=== PATIENT | male | born 1935 | race Caucasian/White ===

== ENCOUNTER 2017-02-10 11:33 | Emergency (ER) | payer MEDICARE ==
[2017-02-10 11:46] VITALS: BP 119/66
--- NOTE | 2017-02-10 12:07 | UC ---
Respiratory Complaint HPI - HPI Summary HPI Summary: 2 DAYS OF COUGH AND RHINITIS. HAS MILD ST. FEELS RUN DOWN. CHEST IS RATTLY. NO FEVER, EAR PAIN, N/V/D. - History of Current Complaint Chief Complaint: UCRespiratory Stated Complaint: CONGESTION Time Seen by Provider: 02/10/17 11:55 Hx Obtained From: Patient Onset/Duration: Gradual Onset, Lasting Days, Still Present Timing: Constant Severity Initially: Moderate Severity Currently: Moderate Pain Intensity: 0 Pain Scale Used: 0-10 Numeric Character: Cough: Nonproductive Aggravating Factors: Nothing Alleviating Factors: Nothing Associated Signs And Symptoms: Positive: URI, Nasal Congestion. Negative: Dyspnea, Fever, Chills, Pleuritic Chest Pain, Wheezing - Allergies/Home Medications Allergies/Adverse Reactions: Allergies Allergy/AdvReac Type Severity Reaction Status Date / Time Tetanus Toxoid Allergy Unknown Unknown Verified 02/10/17 11:46 Reaction Details Home Medications: Home Medications Aspirin TAB* [Aspirin 325 MG TAB*] 325 mg PO Q6H PRN 02/10/17 [History Confirmed 02/10/17] PMH/Surg Hx/FS Hx/Imm Hx Endocrine History: Thyroid Disease Cardiovascular History: Hypertension Other Cancer History: MELANOMA - Surgical History Surgical History: Yes Surgery Procedure, Year, and Place: 2012 - thryroid partially removed, melanoma removed RIGHT forearm. 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 prostatectomy - Family History Known Family History: Positive: Cardiac Disease, Hypertension - Social History Alcohol Use: None Alcohol Amount: gave it up in August 2014 Substance Use Type: None Smoking Status (MU): Former Smoker When Did the Patient Quit Smoking/Using Tobacco: 2001 - Immunization History Most Recent Influenza Vaccination: none Review of Systems Constitutional: Negative ENT: Sore Throat, Nasal Discharge Respiratory: Cough Cardiovascular: Negative Gastrointestinal: Negative All Other Systems Reviewed And Are Negative: Yes Physical Exam Triage Information Reviewed: Yes Appearance: Well-Appearing, No Pain Distress, Well-Nourished Vital Signs: Initial Vital Signs Temp 99.6 F 02/10/17 11:41 Pulse 74 02/10/17 11:41 Resp 16 02/10/17 11:41 BP 119/66 02/10/17 11:41 Pulse Ox 97 02/10/17 11:41 Vital Signs Reviewed: Yes Eyes: Positive: Conjunctiva Clear ENT: Positive: Hearing grossly normal, Pharynx normal, TMs normal Neck: Positive: Supple, Nontender, No Lymphadenopathy Respiratory: Positive: No respiratory distress, No accessory muscle use, Rhonchi - CLEARS WITH COUGH. Negative: Wheezing Cardiovascular Exam: Normal Abdomen Description: Positive: Soft Musculoskeletal: Positive: No Edema Neurological: Positive: Alert Psychological: Positive: Normal Response To Family, Age Appropriate Behavior Skin: Negative: rashes UC Diagnostic Evaluation - Laboratory O2 Sat by Pulse Oximetry: 97 Respiratory Course/Dx - Differential Dx/Diagnosis Provider Diagnoses: ACUTE BRONCHITIS Discharge - Discharge Plan Condition: Stable Disposition: HOME Prescriptions: Azithromycin [Azithromycin 500 MG TAB] 500 mg PO DAILY #5 tab Patient Education Materials: Acute Bronchitis (ED) Referrals: Lakshmi Vaca [Primary Care Provider] - If Needed Additional Instructions: SEEK FOLLOW-UP IF NOT IMPROVING EXPECTED.
== END 2017-02-10 12:23 | disposition home or self-care (01) ==
LOC: UCEAST 11:33
DX: J20.9 Acute bronchitis, unspecified (principal); Z87.891 Personal history of nicotine dependence
CPT/HCPCS: 99212; G0463

== ENCOUNTER 2018-04-30 10:31 | Emergency (ER) | payer MEDICARE ==
[2018-04-30 10:38] VITALS: BP 138/64
--- NOTE | 2018-04-30 10:57 | UC ---
Throat Pain/Nasal Edwin HPI - HPI Summary HPI Summary: 83-year-old male comes in to clinic with a chief complaint of cough body aches and overall feeling ill. Has a runny nose. This all started 4-5 days ago. He' s had a cough but is not able to bring up any sputum. He feels like he got wet about a week ago out in the cold and had sweats made everything worse. - History of Current Complaint Chief Complaint: UCGeneralIllness Stated Complaint: FLU-LIKE SYMPTOMS Time Seen by Provider: 04/30/18 10:41 Pain Intensity: 5 - Allergies/Home Medications Allergies/Adverse Reactions: Allergies Allergy/AdvReac Type Severity Reaction Status Date / Time tetanus and diphtheria Allergy Rash Verified 04/30/18 10:39 toxoids PMH/Surg Hx/FS Hx/Imm Hx Endocrine History: Dyslipidemia Cardiovascular History: Hypertension - Surgical History Surgical History: Yes Surgery Procedure, Year, and Place: 2012 - thryroid partially removed, melanoma removed RIGHT forearm. 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 prostatectomy - Family History Known Family History: Positive: Cardiac Disease, Hypertension - Social History Alcohol Use: None Alcohol Amount: gave it up in August 2014 Substance Use Type: None Smoking Status (MU): Former Smoker When Did the Patient Quit Smoking/Using Tobacco: 2001 - Immunization History Most Recent Influenza Vaccination: none Review of Systems All Other Systems Reviewed And Are Negative: Yes Constitutional: Positive: Chills, Other - MYALGIAS Skin: Positive: Negative Eyes: Positive: Negative ENT: Positive: Sore Throat, Nasal Discharge, Sinus Congestion Respiratory: Positive: Cough Cardiovascular: Positive: Negative Gastrointestinal: Positive: Negative Motor: Positive: Negative Neurovascular: Positive: Negative Musculoskeletal: Positive: Negative Neurological: Positive: Negative Psychological: Positive: Negative Is Patient Immunocompromised?: No Physical Exam Triage Information Reviewed: Yes Appearance: No Pain Distress, Well-Nourished, Ill-Appearing - MILD Vital Signs: Initial Vital Signs Temp 98.9 F 04/30/18 10:36 Pulse 94 04/30/18 10:36 Resp 16 04/30/18 10:36 BP 138/64 04/30/18 10:36 Pulse Ox 99 04/30/18 10:36 Vital Signs Reviewed: Yes Eye Exam: Normal Eyes: Positive: Conjunctiva Clear ENT: Positive: Pharyngeal erythema, Nasal congestion, Nasal drainage, TMs normal Neck exam: Normal Neck: Positive: Supple Respiratory: Positive: Lungs clear, Normal breath sounds, No respiratory distress Cardiovascular: Positive: RRR Musculoskeletal Exam: Normal Musculoskeletal: Positive: Strength Intact, ROM Intact Neurological Exam: Normal Neurological: Positive: Alert, Muscle Tone Normal Psychological Exam: Normal Psychological: Positive: Normal Response To Family, Age Appropriate Behavior Skin Exam: Normal Throat Pain/Nasal Course/Dx - Course Course Of Treatment: DISCUSSED VIRAL VERSES BACTERIAL INFECTIONS AND THE ROLE OF ANTIBIOTICS. THE PATIENT PREFERS TO BE ON ANTIBIOTICS AT THIS TIME. INFLUENZA NEGATIVE. Plan is to follow-up with the [place] clinic get a reevaluation sooner if worse. - Differential Dx/Diagnosis Provider Diagnosis: Bronchitis Discharge - Sign-Out/Discharge Documenting (check all that apply): Patient Departure All imaging exams completed and their final reports reviewed: No Studies - Discharge Plan Condition: Stable Disposition: HOME Prescriptions: Azithromyxin RAHEL (NF) [Z-Rahel (Zithromax) 250 mg tabs #6] 2 tab PO .TODAY, THEN 1 DAILY #6 tab Patient Education Materials: Acute Bronchitis (ED) Referrals: Rafael Almeida MD [Primary Care Provider] - Additional Instructions: FOLLOW UP WITH YOUR DOCTOR IF NOT COMPLETELY IMPROVED. GET RECHECKED FOR ANY WORSENING OF YOUR CONDITION OR QUESTIONS OR CONCERNS. - Billing Disposition and Condition Condition: STABLE Disposition: Home
== END 2018-04-30 11:40 | disposition home or self-care (01) ==
LOC: UCEAST 10:31
DX: J40 Bronchitis, not specified as acute or chronic (principal); Z88.7 Allergy status to serum and vaccine; I10 Essential (primary) hypertension
CPT/HCPCS: 99212; G0463

== ENCOUNTER 2018-12-25 13:16 | Emergency (ER) | payer MEDICARE ==
--- OUTSIDE RECORDS SUMMARY | 2018-12-25 13:22 | XMS REPORT | Continuity of Care Document ---
:1935 External Reference #:[id number] Author Name Lula Lara M.D. Address [address] [place] [address] Care Team Providers Name Role Phone Rafael Almeida MD Care Team Information Physics Department Chair Unavailable Rafael Almeida MD Primary Care Physician Unavailable Payers Date Identification Numbers Payment Provider Subscriber Policy Number: [id number] Medicare Gianluca Streeter PayID: [id number] [address] [place] [address] Expires: 2018 Policy Number: [id number] Medicare Gialnuca Streeter PayID: [id number] [address] [place] [address] Problems Active Problems Provider Date Lula Rodney M.D. Onset: 11/27/2018 History of malignant neoplasm of prostate Lula Lara M.D. Onset: 2018 Family History Date Family Member(s) Observation Comments Father from old age in 80s. Mother Patient not sure cause of - 80s. Social History Type Date Description Comments Sex Unknown Marital Status Lives With Home Environment Lives With Diet Patient follows no dietary restrictions Occupation [employer] 40 years Occupation Retired Work Status Retired Tobacco Use Start: Unknown End: Quit Unknown Smoking Status Reviewed: 11/16/18 Quit ETOH Use Denies alcohol use Tobacco Use Start: Unknown End: Patient is a former Unknown smoker Recreational Drug Use Denies Drug Use Allergies, Adverse Reactions, Alerts Active Allergies Reaction Severity Comments Date Tetanus 07/18/2018 Medications Active Medications SIG Qnty Indications Ordering Date Provider Loratadine take 1 tablet a 30caps J30.89 Choe Norwood MD 08/29/2018 10mg day. Capsules Dorzolamide instill 1 drop in Unknown HCL/Timolol Maleate both eyes bid 22.3-6.8mg/ml Solution Fluocinonide apply to affected Unknown 0.05% area at bed time Ointment for psoriasis Potassium Chloride 1 by mouth every Unknown [facility] ER day 20Meq Tablets ER Prednisolone Acetate instill 1 drop in Unknown 1% R eye bid 5 mins Suspension between each drop Terbinafine HCL apply between toes Unknown 1% once daily on both Cream feet Atenolol 1 by mouth every Unknown 50mg Tablets day Lisinopril 1 by mouth every Unknown 10mg Tablets day Ventolin HFA take 2 puffs every 18gm Unknown 6 hours as needed 108(90Base) mcg/Act for shortness of Aerosol breath. History Medications Aspirin Adult Low Dose 1 by mouth 3 times a week Unknown - Unknown 81mg Tablets DR Vital Signs Date Vital Result Comment 11/27/2018 2:24pm BP Systolic 152 mmHg BP Diastolic 62 mmHg Body Temperature 98.6 F Heart Rate 75 /min Respiratory Rate 18 /min Height 65 inches 5'5" Weight 171.50 lb BMI (Body Mass Index) 28.5 kg/m2 BSA (Body Surface Area) 1.85 m2 [place] body weight in kilograms 62 kg O2 % BldC Oximetry 96 % Pain Level 0 08/29/2018 1:42pm BP Systolic Sitting Left Arm 125 mmHg BP Diastolic Sitting Left Arm 62 mmHg Heart Rate 68 /min Respiratory Rate 18 /min Height 65 inches 5'5" Weight 164.00 lb BMI (Body Mass Index) 27.3 kg/m2 BSA (Body Surface Area) 1.82 m2 [place] body weight in kilograms 62 kg O2 % BldC Oximetry 97 % 07/18/2018 3:46pm BP Systolic Sitting Left Arm 141 mmHg BP Diastolic Sitting Left Arm 62 mmHg Heart Rate 80 /min Respiratory Rate 16 /min Height 65 inches 5'5" Weight 168.00 lb BMI (Body Mass Index) 28.0 kg/m2 BSA (Body Surface Area) 1.84 m2 [place] body weight in kilograms 62 kg O2 % BldC Oximetry 97 % ra Results Test Date Facility Test Result H/L Range Note Laboratory test 11/27/2018 [facility] Prostate <pending> finding [address] [place] [address] Antigen [phone] Urine Dipstick 11/27/2018 [facility] Ua Color Yellow Yellow Ua Clarity Clear Clear Ua Leuko Negative Negative Ua Nitrite Negative Negative Ua Urobilinogen 0.2 0.2 - 1.0 E.U./dL Ua Protein Negative Negative Ua PH 6.0 Low 6.5-7.5 Ua Blood Negative Negative Ua Specific [place] 1.015 1.010-1.030 Ua Ketones Negative Negative Ua Bilirubin Negative Negative Ua Glucose Negative Negative Lab Results 11/24/2017 N2N/CCD Import Total Psa Only 0.08 ng/mL 0-4 Lab Results 05/25/2017 N2N/CCD Import Total Psa Only 0.12 ng/mL 0-4 Lab Results 05/10/2016 N2N/CCD Import Total Psa Only 0.14 ng/mL 0-4 Testosterone 284.98 ng/dL Low 300-1000 Lab Results 05/07/2015 N2N/CCD Import Total Psa Only 0.07 ng/mL 0-4 Testosterone 437.63 ng/dL 300-1000 Lab Results 05/06/2014 N2N/CCD Import Total Psa Only 0.05 ng/mL 0-4 Testosterone 445.42 ng/dL 300-1000 Lab Results 07/15/2013 N2N/CCD Import PSA Total <0.1 0-4 Lab Results 05/09/2013 N2N/CCD Import Total PSA With Reflex <0.04 ng/mL 0-4 Testosterone 427.74 ng/dL 300-1000 Lab Results 04/17/2012 N2N/CCD Import Total PSA <0.04 ng/mL 0-4 Testosterone 218.01 ng/dL 199-1586 Lab Results 04/21/2011 N2N/CCD Import Total PSA < 0.04 ng/mL 0-4 Testosterone 385.50 ng/dL 225-972 Lab Results 07/28/2009 N2N/CCD Import Testosterone Total 2.87 1 Low 3- 10.6 Lab Results 07/28/2009 N2N/CCD Import PSA Total < 0.07 0.07-4 Lab Results 07/25/2008 N2N/CCD Import Testosterone Total 3.74 1 3-10.6 Lab Results 07/25/2008 N2N/CCD Import PSA Total < 0.07 0.07-4 Lab Results 12/14/2007 N2N/CCD Import PSA Total < 0.1 0-4 Lab Results 05/07/2007 N2N/CCD Import PSA Total < 0.1 0-4 Lab Results 04/30/2007 N2N/CCD Import Testosterone Total 2.63 1 Low 3- 10.6 Lab Results 04/30/2007 N2N/CCD Import PSA Total < 0.07 0.07-4 Lab Results 11/02/2006 N2N/CCD Import PSA Total < 0.07 0.07-4 Lab Results 04/21/2006 N2N/CCD Import Testosterone Total 2.31 1 Low 3- 10.6 Lab Results 04/21/2006 N2N/CCD Import PSA Total < 0.07 0.07-4 Lab Results 10/18/2005 N2N/CCD Import PSA Total < 0.1 0-4 Encounters Type Date Location Provider Dx Diagnosis Office Visit 08/29/2018 Pulmonology Cheo Norwood MD J44.9 Chronic obstructive 1:45p pulmonary disease, unspecified J30.89 Other allergic rhinitis R91.1 Solitary pulmonary nodule Office Visit 07/18/2018 3:30p Pulmonology Cheo Norwood MD J44.9 Chronic obstructive pulmonary disease, unspecified R91.1 Solitary pulmonary nodule Office Visit 09/02/2014 5:02p [facility]ise Mayorga, 780.97 [facility] MD Status 276.1 Hyposmolality & Or Hyponatremia Office Visit 08/30/2014 4:29p [facility] German 780.97 [facility], Status Center Plan of Treatment Future Appointment(s):12/03/2019 11:00 am - Lula Lara M.D. at [id number] 1:45 pm - Cheo Norwood MD at [id number]/25/2019 - Lula Lara M.D.Z85.46 Personal history of malignant neoplasm of prostateComments:Patient is unlikely developed metastatic gastric disease given his age and slow rise in the PSA. We'll check his PSA today and depending on the evaluation might discontinue checking PSAs in the future.N43.3 HydroceleComments:Patient is not symptomatic and does not want any intervention at this time.
[2018-12-25 13:28] VITALS: BP 144/64
--- NOTE | 2018-12-25 13:54 | UC ---
Skin Complaint HPI - HPI Summary HPI Summary: 83-year-old male comes in with a chief complaint of a rash on the right upper inner thigh. For 5 days ago he noticed 2 areas that were slightly raised and irritated. Just in the last day he's noticed 2 more of the same type lesions in the same area. Denies any fevers or chills. Reports feeling well otherwise. He did report taking to black spots out of the area. Not sure if there was any ticks. - History of Current Complaint Chief Complaint: UCSkin Time Seen by Provider: 12/25/18 13:34 Stated Complaint: SKIN ISSUE Pain Intensity: 2 - Allergy/Home Medications Allergies/Adverse Reactions: Allergies Allergy/AdvReac Type Severity Reaction Status Date / Time tetanus and diphtheria Allergy Rash Verified 12/25/18 13:28 toxoids Home Medications: Home Medications Timolol 0.25% OPHTH.SOLN* [Timoptic Ophth.soln 0.25%] 1 drop BOTH EYES BID 12/25 [History Confirmed 12/25/18] PMH/Surg Hx/FS Hx/Imm Hx Previously Healthy: Yes Cardiovascular History: Hypertension - Surgical History Surgical History: Yes Surgery Procedure, Year, and Place: 2012 - thryroid partially removed, melanoma removed RIGHT forearm. 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 prostatectomy - Family History Known Family History: Positive: Cardiac Disease, Hypertension - Social History Alcohol Use: None Alcohol Amount: gave it up in August 2014 Substance Use Type: None Smoking Status (MU): Former Smoker When Did the Patient Quit Smoking/Using Tobacco: 2001 - Immunization History Most Recent Influenza Vaccination: none Review of Systems All Other Systems Reviewed And Are Negative: Yes Constitutional: Positive: Negative Skin: Positive: Other - SEE HPI ENT: Positive: Negative Respiratory: Positive: Negative Cardiovascular: Positive: Negative Gastrointestinal: Positive: Negative Motor: Positive: Negative Neurovascular: Positive: Negative Musculoskeletal: Positive: Negative Neurological: Positive: Negative Psychological: Positive: Negative Is Patient Immunocompromised?: No Physical Exam Triage Information Reviewed: Yes Appearance: Well-Appearing, No Pain Distress, Well-Nourished Vital Signs: Initial Vital Signs Temp 100.3 F 12/25/18 13:23 Pulse 72 12/25/18 13:23 Resp 19 12/25/18 13:23 BP 144/64 12/25/18 13:23 Pulse Ox 98 12/25/18 13:23 Vital Signs Reviewed: Yes Eye Exam: Normal Eyes: Positive: Conjunctiva Clear Neck: Positive: Supple Respiratory: Positive: No respiratory distress Neurological: Positive: Alert, Muscle Tone Normal Psychological: Positive: Age Appropriate Behavior Skin: Positive: Other - Of the right upper inner thigh there are 4 punctate areas of dark erythema surrounded by framing inspector erythema. There is no foreign body seen. No drainage. No streaking. Course/Dx - Course Course Of Treatment: With the temperature being 100.3 oral treat with oral and topical antibiotics. I let the patient know that he needs to get reevaluated in the emergency department if worse or any questions or concerns. - Diagnoses Provider Diagnosis: Insect bite of leg, right, infected Discharge - Sign-Out/Discharge Documenting (check all that apply): Patient Departure All imaging exams completed and their final reports reviewed: No Studies - Discharge Plan Condition: Stable Disposition: HOME Prescriptions: DOXYcycline CAP(*) [DOXYcycline 100MG CAP(*)] 100 mg PO BID #28 cap Mupirocin 1 applic TOPICAL BID #22 gm Patient Education Materials: Insect Bite or Sting (ED) Referrals: Rafael Almeida MD [Primary Care Provider] - Additional Instructions: FOLLOW UP WITH YOUR DOCTOR IF NOT COMPLETELY IMPROVED. GO TO THE EMERGENCY DEPARTMENT IF YOUR CONDITION WORSENS; FEVER, YOU FEEL ILL OR ANY QUESTIONS OR CONCERNS. - Billing Disposition and Condition Condition: STABLE Disposition: Home
== END 2018-12-25 14:00 | disposition home or self-care (01) ==
LOC: UCEAST 13:16
DX: S80.861A Insect bite (nonvenomous), right lower leg, initial encounter (principal); L08.9 Local infection of the skin and subcutaneous tissue, unspecified; W57.XXXA Bitten or stung by nonvenomous insect and other nonvenomous arthropods, initial encounter; Y92.9 Unspecified place or not applicable; I10 Essential (primary) hypertension; Z87.891 Personal history of nicotine dependence; Z85.820 Personal history of malignant melanoma of skin; Z85.840 Personal history of malignant neoplasm of eye
CPT/HCPCS: 99212; G0463